=== PATIENT | female | born 1960 | race Caucasian/White ===

== ENCOUNTER 2019-10-07 16:04 | Emergency (ER) | payer BC, SELFPAY ==
[2019-10-07 16:20] VITALS: BP 128/73; PULSE 69; RESP 20; TEMP 36.6; O2SAT 100
--- NOTE | 2019-10-07 16:42 | ED.EXTPRO ---
HPI - Extremity Problem General Chief complaint: Extremity Problem,Nontraumatic Stated complaint: left foot/ankle swollen Time Seen by Provider: 10/07/19 16:23 Source: patient and RN notes reviewed Mode of arrival: ambulatory Limitations: no limitations History of Present Illness HPI Narrative: Patient presents today complaining of swelling and redness to her left ankle. She was stung by a wasp 1 week ago and has been experiencing itching, swelling, and discomfort since that time. Denies numbness or tingling in the extremities. Denies fever, sweats or chills, red streaking up the foot or leg. Denies any pain currently. She has been using topical Benadryl without relief. States she is leaving for vacation tomorrow and wanted to come in for evaluation MD Complaint: extremity swelling Related Data Allergies Allergy/AdvReac Type Severity Reaction Status Date / Time No Known Allergies Allergy Verified 10/07/19 16:24 Review of Systems Review of Systems: Narrative: CONSTITUTIONAL: Denies body aches, fever, chills, or sweats. EYES: Denies visual changes, redness, or discharge. ENT: Denies rhinorrhea, congestion, sore throat, or otalgia. CARDIOVASCULAR: Denies chest pain, palpitations, or edema. RESPIRATORY: Denies cough or dyspnea. GASTROINTESTINAL: Denies abdominal pain, nausea, vomiting, or diarrhea. GENITOURINARY: Denies dysuria or hematuria. SKIN: + Insect sting, left ankle swelling MUSCULOSKELETAL: Denies back pain, joint pain, or myalgia. NEUROLOGIC: Denies headache, numbness, tingling, or weakness. PSYCH: Denies depression or anxiety. [facility] Family History Family History (Updated 11/24/17 @ 12:01 by DOCTOR UNKNOWN) Father Hypertension Family history of cardiovascular disease Family history of Parkinson's disease Family history of coronary artery disease Mother Hypertension Social History Social History Smoking status: Never smoker Alcohol intake: never Comments At time of signature, I have reviewed and agree with nursing past medical, surgical, social and family history unless otherwise noted. Please see nursing chart for further information. There is no relevant family history pertinent to the presenting complaint Exam Narrative: Exam Narrative: GENERAL: Well-appearing, well-nourished, and in no acute distress. HEAD: Normocephalic, atraumatic. EYES: EOMI. No redness or drainage. Conjunctivae normal. ENT: Mucous membranes pink and moist. NECK: Normal AROM. CHEST: No respiratory distress. EXTREMITIES: Left ankle: Puncture wound to the medial ankle with mild surrounding erythema measuring approximately 6 x 6 cm with localized warmth. 1+ pitting edema about the ankle. Nontender to palpation. No induration or fluctuance noted. No red streaking noted up the foot or leg. Distal sensation intact. Capillary refill normal. Pedal pulse normal. Full AROM of ankle and all toes. SKIN: Warm, dry, no rash. Capillary refill normal. Normal skin turgor. NEURO: No focal deficits. Alert and oriented x3. Gait steady. PSYCH: Normal affect. No signs of depression or anxiety. Course Vital Signs Vital signs: Vital Signs Temperature 97.9 F 10/07/19 16:20 Pulse Rate 69 10/07/19 16:20 Respiratory Rate 20 10/07/19 16:20 Blood Pressure 128/73 10/07/19 16:20 Pulse Oximetry 100 10/07/19 16:20 Temperature 97.9 F 10/07/19 16:20 Pulse Rate 69 10/07/19 16:20 Respiratory Rate 20 10/07/19 16:20 Blood Pressure 128/73 10/07/19 16:20 Pulse Oximetry 100 10/07/19 16:20 Reviewed. Pt has been instructed to follow up with her PCP regarding her elevated blood pressure today. MDM - Extremity (Nontraumatic) Differential Diagnosis Differential diagnosis: Likely cellulitis, lower extremity edema and other (Insect bite or sting, allergic reaction to insect bite or sting, abscess, lymphangitis, impetigo) Critical Care Time Critical Care Time Critical Care Time: No Discharge Plan Di
== END 2019-10-07 16:53 | disposition home or self-care (01) ==
PROVIDERS: Emergency Provider Nurse Practitioner; PCP Family Medicine
DX: L03.116 Cellulitis of left lower limb (principal); T63.461A Toxic effect of venom of wasps, accidental (unintentional), initial encounter
CPT/HCPCS: 99213; G0463

== ENCOUNTER → 2020-03-11 10:11 | Outpatient (CLI) | payer BC, SELFPAY ==
--- NOTE | ~2020-03-11 | MM_ITS ---
EXAMINATION: MM screening [facility] BI w mercedes HISTORY: Screening mammogram TECHNIQUE: Craniocaudal and mediolateral oblique 3-D tomosynthesis images were obtained and synthetic 2-D images were generated. CAD analysis was submitted and interpreted. COMPARISON: 10/01/2018, 04/25/2017, 02/07/2015 bilateral digital screening mammogram examinations BREAST PARENCHYMAL COMPOSITION: There are scattered areas of fibroglandular density. FINDINGS: There is no evidence of suspicious mass, calcification, or architectural distortion to sugg est malignancy in either breast. There has been no suspicious interval change. IMPRESSION: 1. No mammographic evidence of malignancy. 2. Recommend routine screening mammography in one year. BI-RADS Category 1: Negative Reviewed, dictated and finalized at location A. [facility]
--- NOTE | ~2020-03-11 | DEXA_ITS ---
Bone Density Report Name: Nisha Amador Age: 59 Sex: Female Ethnicity: White Date of : 1960 Indication: osteopenia; height loss; postmenopausal Referring Provider: OSITO, GORDON Study: Bone densitometry was performed. Exam Date: March 11, 2020 Accession number: [id number] Bone Density: Region BMD T-score Z-score Classification AP Spine (L1-L4) 1.010 -0.3 1.1 Normal Femoral Neck (Left) 0.699 -1.4 0.0 Osteopenia Total Hip (Left) 0.733 -1.7 -0.7 Osteopenia Femoral Neck (Right) 0.681 -1.5 -0.2 Osteopenia Total Hip (Right) 0.744 -1.6 -0.6 Osteopenia Total Hip Mean 0.739 -1.7 -0.7 Osteopenia World Health Organization criteria for BMD impression classify patients as: Normal (T-score at or above -1.0), Osteopenia (T-score between -1.0 and -2.5), or Osteoporosis (T-score at or below -2.5). 10-year Fracture Risk(1): Major Osteoporotic Fracture 8.2% Hip Fracture 0.7% Reported Risk Factors: [place] (), Neck BMD=0.681, BMI=27.6 (1) FRAX(R) Version 3.08. Fracture probability calculated for an untreated patient. Fracture probability may be lower if the patient has received treatment. Previous Exams: Region Exam Age BMD T-score BMD Change BMD Change Date g/cm2 vs Baseline vs Previous AP Spine(L1-L4) 03/11/2020 59 1.010 -0.3 -0.044* -0.008 04/04/2017 56 1.018 -0.3 -0.036* -0.032* 03/03/2015 54 1.049 0.0 -0.005 -0.005 10/14/2012 52 1.054 0.1 Total Hip(Left) 03/11/2020 59 0.733 -1.7 -0.041* -0.013 04/04/2017 56 0.746 -1.6 -0.028* -0.028* 03/03/2015 54 0.774 -1.4 0.000 0.000 10/14/2012 52 0.774 -1.4 Total Hip(Right) 03/11/2020 59 0.744 -1.6 -0.052* 0.005 04/04/2017 56 0.739 -1.7 -0.058* -0.024 03/03/2015 54 0.763 -1.5 -0.034* -0.034* 10/14/2012 52 0.797 -1.2 *Denotes significance at 95% confidence level, LSC for AP Spine = 0.022 g/cm2, LSC for Total Hip = 0.027 g/cm2 Clinical Information Provided by Patient: Has used the following medications: Vitamin D, Calcium, MTV Patient maximum height was 65.5 Menopause Age: 49 Onset of menses at age 11 Number of children 3 Impression: The patient has low bone mass, based on the Left Total Hip T-score. The patient has an estimated ten-year risk of hip fracture of 0.7%
== END ==
PROVIDERS: Visit Provider Nurse Practitioner
DX: Z12.31 Encounter for screening mammogram for malignant neoplasm of breast (principal); M85.852 Other specified disorders of bone density and structure, left thigh; M85.851 Other specified disorders of bone density and structure, right thigh
CPT/HCPCS: 77063; 77067; 77080

== ENCOUNTER → 2021-05-26 07:52 | Outpatient (CLI) | payer OTHER, SELFPAY ==
--- NOTE | ~2021-05-26 | MM_ITS ---
EXAMINATION: MM screening [facility] BI w mercedes HISTORY: Screening mammogram TECHNIQUE: Craniocaudal and mediolateral oblique 3-D tomosynthesis images were obtained and synthetic 2-D images were generated. Bilateral rotated lateral CC views. CAD analysis was submitted and interp reted. COMPARISON: 03/11/2020, 10/01/2018, 04/25/2017 bilateral screening mammogram examinations BREAST PARENCHYMAL COMPOSITION: There are scattered areas of fibroglandular density. FINDINGS: There is no evidence of suspicious mass, calcification, or architectural distortion to sugg est malignancy in either breast. There has been no suspicious interval change. IMPRESSION: 1. No mammographic evidence of malignancy. 2. Recommend routine screening mammography in one year. BI-RADS Category 1: Negative Reviewed, dictated and finalized at location A.
== END ==
PROVIDERS: PCP Family Medicine; Visit Provider Nurse Practitioner
DX: Z12.31 Encounter for screening mammogram for malignant neoplasm of breast (principal)
CPT/HCPCS: 77063; 77067

== ENCOUNTER 2022-01-23 17:25 | Outpatient (CLI) | payer OTHER, SELFPAY ==
[2022-01-23 18:03] LABS: Add Urine Microscopic? YES; Appearance Urine Clear (Clear); Bilirubin Urine Negative (Negative); Blood Urine 1+ (Negative); Color Urine Light Yellow (Yellow); Glucose Urine UA Negative (Negative); Ketones Urine Negative (Negative); Leukocyte Esterase Ur 3+ LEU/UL (Negative); Nitrate Urine Negative (Negative); Protein Urine Negative (Negative); Specific Grav Ur <= 1.005 (1.001-1.035); Urobilinogen Urine 0.2 mg/dL (<2.0)
[2022-01-23 18:09] LABS: Bacteria Urine Trace /hpf; Mucus Urine Rare /lpf; RBC Urine 0-2 /hpf (0-2); Squamous Epithelial Cell Urine Rare /hpf (Few); WBC Urine 31-50 /hpf
== END 2022-01-23 17:26 | disposition home or self-care (01) ==
PROVIDERS: PCP Family Medicine; Visit Provider Physician Assistant
DX: R35.0 Frequency of micturition (principal)
CPT/HCPCS: 81001; 87077; 87086; 87186

== ENCOUNTER 2022-06-21 12:49 | Outpatient (CLI) | payer BC, SELFPAY | END 2022-06-21 12:50 | disposition home or self-care (01) | LOC: ANHAUDIO 12:49 | PROVIDERS: PCP Family Medicine; Visit Provider Otolaryngology | DX: H93.19 Tinnitus, unspecified ear (principal); R42 Dizziness and giddiness | CPT/HCPCS: 92557; 92567 ==

== ENCOUNTER → 2022-07-05 13:26 | Outpatient (CLI) | payer BC, SELFPAY ==
--- NOTE | ~2022-07-05 | DEXA_ITS ---
Bone Density Report Name: TAYE BOBO Age: 62 Sex: Female Ethnicity: White Date of : 1960 Indication: osteopenia; height loss; postmenopausal Referring Provider: OSITO, GORDON Study: Bone densitometry was performed. Exam Date: July 05, 2022 Accession number: [id number] Bone Density: Region BMD T-score Z-score Classification AP Spine (L1-L4) 1.018 -0.3 1.4 Normal Femoral Neck (Left) 0.671 -1.6 -0.2 Osteopenia Total Hip (Left) 0.725 -1.8 -0.7 Osteopenia Femoral Neck (Right) 0.661 -1.7 -0.3 Osteopenia Total Hip (Right) 0.723 -1.8 -0.7 Osteopenia Total Hip Mean 0.724 -1.8 -0.7 Osteopenia World Health Organization criteria for BMD impression classify patients as: Normal (T-score at or above -1.0), Osteopenia (T-score between -1.0 and -2.5), or Osteoporosis (T-score at or below -2.5). 10-year Fracture Risk(1): Major Osteoporotic Fracture 9.0% Hip Fracture 0.9% Reported Risk Factors: [place] (), Neck BMD=0.661, BMI=26.4 (1) FRAX(R) Version 3.08. Fracture probability calculated for an untreated patient. Fracture probability may be lower if the patient has received treatment. Previous Exams: Region Exam Age BMD T-score BMD Change BMD Change Date g/cm2 vs Baseline vs Previous AP Spine(L1-L4) 07/05/2022 62 1.018 -0.3 -0.036* 0.008 03/11/2020 59 1.010 -0.3 -0.044* -0.008 04/04/2017 56 1.018 -0.3 -0.036* -0.032* 03/03/2015 54 1.049 0.0 -0.005 -0.005 10/14/2012 52 1.054 0.1 Total Hip(Left) 07/05/2022 62 0.725 -1.8 -0.048* -0.008 03/11/2020 59 0.733 -1.7 -0.041* -0.013 04/04/2017 56 0.746 -1.6 -0.028* -0.028* 03/03/2015 54 0.774 -1.4 0.000 0.000 10/14/2012 52 0.774 -1.4 Total Hip(Right) 07/05/2022 62 0.723 -1.8 -0.074* -0.021 03/11/2020 59 0.744 -1.6 -0.052* 0.005 04/04/2017 56 0.739 -1.7 -0.058* -0.024 03/03/2015 54 0.763 -1.5 -0.034* -0.034* 10/14/2012 52 0.797 -1.2 *Denotes significance at 95% confidence level, LSC for AP Spine = 0.022 g/cm2, LSC for Total Hip = 0.027 g/cm2 Clinical Information Provided by Patient: Has used the following medications: Vitamin D, Calcium, MTV Patient maximum height was 65.5 Menopause Age: 49 Drinks caffeinated beverages Onset of menses at age 11 Number of children 3
--- NOTE | ~2022-07-05 | MM_ITS ---
EXAMINATION: MM screening [facility] BI w mercedes HISTORY: Screening mammogram TECHNIQUE: Craniocaudal and mediolateral oblique 3-D tomosynthesis images were obtained and synthetic 2-D images were generated. CAD analysis was submitted and interpreted. COMPARISON: 05/26/2021, 03/11/2020, 10/01/2018 BREAST PARENCHYMAL COMPOSITION: There are scattered areas of fibroglandular density. FINDINGS: No suspicious mass, calcification, or architectural distortion are identified in either marleny ast to suggest malignancy. There has been no suspicious interval change. IMPRESSION: 1. No mammographic evidence of malignancy. 2. Recommend routine screening mammography in one year. BI-RADS Category 1: Negative Reviewed, dictated and finalized at location A.
== END ==
PROVIDERS: PCP Family Medicine; Visit Provider Nurse Practitioner
DX: Z12.31 Encounter for screening mammogram for malignant neoplasm of breast (principal); Z78.0 Asymptomatic menopausal state; M85.89 Other specified disorders of bone density and structure, multiple sites
CPT/HCPCS: 77063; 77067; 77080

== ENCOUNTER 2023-08-20 07:46 | Outpatient (CLI) | payer BC, SELFPAY ==
--- NOTE | ~2023-08-20 | MMUS_ITS ---
EXAMINATION: MM diagnostic [facility] BI w mercedes, US breast LT complete HISTORY: Left breast pain TECHNIQUE: Additional 3-D tomosynthesis images of the breasts were performed and synthetic 2-D images were generated. CAD analysis was submitted and interpreted. High resolution complete left breast ult rasound was performed. COMPARISON: Comparison to multiple prior studies sequentially, with oldest reviewed study dated 04/25. BREAST PARENCHYMAL COMPOSITION: Not dense: There are scattered areas of fibroglandular density. FINDINGS: MAMMOGRAPHIC FINDINGS: There are no suspicious masses, calcifications or architectural distortion in either breast to sugges t malignancy. ULTRASOUND: Complete US of all 4 quadrants of the left breast at 1:00, 3 cm from the nipple there is an oval hypo echoic parallel oriented 5 mm mass without internal vascularity or posterior features, likely benign. And retroareolar region was reviewed. IMPRESSION: 1. Probable benign 5 mm left breast mass at 1:00, 3 cm from the nipple. 2. Recommend 6 month follow-up diagnostic left mammogram and Limited left breast ultrasound BI-RADS category 3, probably benign findings. Reviewed, dictated and finalized at location B. IMPRESSION: 1. Probable benign 5 mm left breast mass at 1:00, 3 cm from the nipple. 2. Recommend 6 month follow-up diagnostic left mammogram and Limited left breas t ultrasound BI-RADS category 3, probably benign findings.
== END 2023-08-20 07:47 | disposition home or self-care (01) ==
LOC: MICIMG 07:47
PROVIDERS: PCP Family Medicine; Visit Provider Nurse Practitioner
DX: R92.8 Other abnormal and inconclusive findings on diagnostic imaging of breast (principal)
CPT/HCPCS: 76641; 77062; 77066; G0279

== ENCOUNTER 2024-11-23 07:57 | Outpatient (CLI) | payer MEDICARE, OTHER, SELFPAY ==
--- NOTE | ~2024-11-23 | DEXA_ITS ---
Bone Density Report Name: TAYE BOBO Age: 64 Sex: Female Ethnicity: White Date of : 1960 Indication: osteopenia; Referring Provider: PAULMELO Study: Bone densitometry was performed. Exam Date: November 23, 2024 Accession number: [id number] Bone Density: Region BMD T-score Z-score Classification AP Spine(L1-L4) 1.017 -0.3 1.5 Normal Femoral Neck (Left) 0.634 -1.9 -0.4 Osteopenia Total Hip (Left) 0.675 -2.2 -0.9 Osteopenia Femoral Neck (Right) 0.639 -1.9 -0.4 Osteopenia Total Hip (Right) 0.707 -1.9 -0.7 Osteopenia Total Hip Mean 0.691 -2.1 -0.8 Osteopenia World Health Organization criteria for BMD impression classify patients as: Normal (T-score at or above -1.0), Osteopenia (T-score between -1.0 and -2.5), or Osteoporosis (T-score at or below -2.5). 10-year Fracture Risk(1): Major Osteoporotic Fracture 11% Hip Fracture 1.5% Reported Risk Factors: [place] (), Neck BMD=0.634, BMI=26.1 (1) FRAX(R) Version 3.08. Fracture probability calculated for an untreated patient. Fracture probability may be lower if the patient has received treatment. Previous Exams: -- Region Exam Age BMD T-score BMD Change BMD Change Date g/cm2 vs Baseline vs Previous -- AP Spine (L1-L4) 11/23/2024 64 1.017 -0.3 -3.5%* -0.1% 07/05/2022 62 1.018 -0.3 -3.4%* 0.8% 03/11/2020 59 1.010 -0.3 -4.2%* -0.8% 04/04/2017 56 1.018 -0.3 -3.4%* -3.0%* 03/03/2015 54 1.049 0.0 -0.4% -0.4% 10/14/2012 52 1.054 0.1 Total Hip(Left) 11/23/2024 64 0.675 -2.2 -12.7%* -6.9%* 07/05/2022 62 0.725 -1.8 -6.2%* -1.0% 03/11/2020 59 0.733 -1.7 -5.3%* -1.8% 04/04/2017 56 0.746 -1.6 -3.6%* -3.6%* 03/03/2015 54 0.774 -1.4 0.0% 0.0% 10/14/2012 52 0.774 -1.4 Total Hip(Right) 11/23/2024 64 0.707 -1.9 -11.2%* -2.2% 07/05/2022 62 0.723 -1.8 -9.3%* -2.9% 03/11/2020 59 0.744 -1.6 -6.6%* 0.7% 04/04/2017 56 0.739 -1.7 -7.2%* -3.1% 03/03/2015 54 0.763 -1.5 -4.2%* -4.2%* 10/14/2012 52 0.797 -1.2 -- *Denotes significance at 95% confidence level, LSC for AP Spine = 0.022 g/cm2, LSC for Total Hip = 0.027 g/cm2 Clinical Information Provided by Patient: Has used the following medications: Vitamin D, Calcium Patient maximum height was 64 Menopause Age: 49 No regular weight bearing exercise Does not regularly consume dairy products Drinks caffeinated beverages Onset of menses at age 11 Number of children 3 Impression: The patient has low bone mass, based on the Left Total Hip T-score. The patient has an estimated ten-year risk of hip fracture of 1.5% and an estimated ten-year risk of major fracture of 11%, based on the WHO FRAX algorithm. The BMD for the Total Hip(Left) decreased, changing by -6.9% since the last DXA exam. Discussion: BONE DENSITY IS LOW AT ONE OR MORE SKELETAL SITES. This patient's lowest T-score is low at one or more skeletal sites. It meets the World Health Organization's (WHO) criteria for ?low bone mass? (T-score between -1.0 and -2.5). The patient's 10-year risk of fracture as calculated by FRAX is less than the threshold where pharmacological therapy is recommended by the National Osteoporosis Foundation (NOF). However, all treatment decisions require clinical judgment and consideration of individual patient factors, including patient preferences, comorbidities, previous drug use, risk factors not captured in the FRAX model (e.g., frailty, falls, vitamin D deficiency, increased bone turnover, interval significant decline in bone density) and possible under or overestimation of fracture risk by FRAX. The patient should follow a healthful lifestyle (good nutrition with adequate calcium and vitamin D, and appropriate weight-bearing exercise). Follow-Up: Consider repeating this study in 2 years to reassess this patient's status, or sooner if there is some new clinical indication. Reported by: CORRINA on 11/23/2024 8:33:00 AM. Reviewed, dictated and finalized at location A.
--- NOTE | ~2024-11-23 | MM_ITS ---
EXAMINATION: MM screening [facility] BI w mercedes HISTORY: Screening TECHNIQUE: Craniocaudal and mediolateral oblique 3-D tomosynthesis images were obtained and synthetic 2-D images were generated. CAD analysis was submitted and interpreted. COMPARISON: 07/05/2022 BREAST PARENCHYMAL COMPOSITION: The breasts are heterogeneously dense, which may obscure small masses. FINDINGS: There is no evidence of suspicious mass, calcification, or architectural distortion in either breast to suggest malignancy. There has been no significant interval change. IMPRESSION: 1. No mammographic evidence of malignancy. Recommend routine screening mammography in one year. BI-RADS Category 1: Negative Reviewed, dictated and finalized at location Q. IMPRESSION: 1. No mammographic evidence of malignancy. Recommend routine screening mammogra phy in one year. BI-RADS Category 1: Negative
== END 2024-11-23 07:58 | disposition home or self-care (01) ==
LOC: MICIMG 07:58
PROVIDERS: PCP Family Medicine; Visit Provider Obstetrics & Gynecology
DX: Z12.31 Encounter for screening mammogram for malignant neoplasm of breast (principal); Z13.820 Encounter for screening for osteoporosis; M85.89 Other specified disorders of bone density and structure, multiple sites
CPT/HCPCS: 77063; 77067; 77080